=== PATIENT | male | born 1970 | race Caucasian/White ===

== ENCOUNTER 2017-10-26 16:12 | Emergency (ER) | payer SELFPAY ==
[~2017-10-26] VITALS: Ht 175.3 cm; Wt 80.0 kg
[2017-10-26 16:27] VITALS: BP 133/74; PULSE 89; RESP 16; TEMP 99.2; O2SAT 97
--- NOTE | 2017-10-26 16:51 | PD ---
HPI Chief Complaint: Skin Problem Time Seen by Provider: 16:35 Travel History International Travel<30 days: No Contact w/Intl Traveler<30days: No Traveled to known affect area: No History of Present Illness HPI Patient is a 47-year-old male who presents the emergency room with complaints of right ankle pain and swelling. Patient reports that 2 days ago, he twisted his right ankle twice, reports that he was seen at an outside emergency room and had an x-ray as well as a CT of his ankle performed which showed no obvious fractures. Patient reports that he has increased pain and swelling to his right ankle, he went to a furniture store today and was advised by the associate working to go to the ER to be re-seen. Patient denies any recent fall , reports that he has been wearing a brace on his right ankle, reports that he wanted a second opinion. Patient with no fever or chills, no other complaints at this time. PFSH Past Medical History Anxiety: Yes Depression: Yes Diminished Hearing: No Genitourinary: Yes (HX BRUSSED KIDNEY FROM FALL) Musculoskeletal: Yes (HX FX VERTIBRY, HX FX RIB) Immunizations Current: Yes Influenza Vaccination: No Past Surgical History Surgical History: No Previous Surgery Social History Alcohol Use: No (HX OF) Tobacco Use: Yes (1 PPD) Substance Use: No Allergies-Medications (Allergen,Severity, Reaction): Coded Allergies: acetaminophen (Unverified Allergy, Severe, Hives, 10/26/17) oxycodone (Unverified Allergy, Severe, Hives, 10/26/17) amoxicillin (Verified Allergy, Unknown, 10/26/17) clavulanic acid (Verified Allergy, Unknown, 10/26/17) Reported Meds & Prescriptions Reported Meds & Active Scripts Active Active Prescriptions or Reported Medications Unobtainable Review of Systems General / Constitutional: No: Fever, Chills Eyes: No: Visual changes HENT: No: Headaches Cardiovascular: No: Chest Pain or Discomfort Respiratory: No: Shortness of Breath Gastrointestinal: No: Abdominal Pain Genitourinary: No: Dysuria Musculoskeletal: No: Pain Skin: Positive Other (Right ankle swelling), No Rash Neurologic: No: Weakness Psychiatric: No: Depression Endocrine: No: Polydipsia Hematologic/Lymphatic: No: Easy Bruising Physical Exam Narrative GENERAL: Well-nourished, well-developed patient. SKIN: Focused skin assessment warm/dry. HEAD: Normocephalic. EYES: No scleral icterus. No injection or drainage. NECK: Supple, trachea midline. No JVD or lymphadenopathy. CARDIOVASCULAR: Regular rate and rhythm without murmurs, gallops, or rubs. RESPIRATORY: Breath sounds equal bilaterally. No accessory muscle use. GASTROINTESTINAL: Abdomen soft, non-tender, nondistended. MUSCULOSKELETAL: No cyanosis, or edema to left lower extremity. Right lower extremity: Patient with swelling to right ankle with bruising to right foot, no open fractures, there are no signs of infection, no erythema or warmth, pulses intact, neurovascularly intact. BACK: Nontender without obvious deformity. No CVA tenderness. Data Data Last Documented VS Vital Signs Date Time Temp Pulse Resp B/P (MAP) Pulse Ox O2 Delivery O2 Flow Rate FiO2 10/26/17 16:27 99.2 89 16 133/74 (93) 97 Orders Orders Ibuprofen (Motrin) (10/26/17 17:00) MDM Medical Decision Making Medical Screen Exam Complete: Yes Emergency Medical Condition: Yes Medical Record Reviewed: Yes Interpretation(s) Vital Signs Date Time Temp Pulse Resp B/P (MAP) Pulse Ox O2 Delivery O2 Flow Rate FiO2 10/26/17 16:27 99.2 89 16 133/74 (93) 97 Differential Diagnosis ankle sprain Narrative Course 47-year-old male who presents the emergency room with complaints of right-sided ankle sprain which occurred after a fall 2 days ago. Patient had an x-ray as well as a CAT scan of his right ankle which was negative for fracture at an outside hospital. Patient reports that his ankle is still swollen, patient is here for second opinion. Patient does have obvious swelling to his right ankle and right foot with bruising to his right foot, there are no obvious open fractures. Patient has bounding pulses to bilateral feet, he has had previous x-rays as well as CT scan of his ankle with no signs of fracture, patient with most likely ankle sprain. Patient follow-up with orthopedic surgeon if symptoms do not improve, encouraged rest, ice and elevation of his right ankle. Signs and symptoms of when to return to the emergency room was reviewed with patient in detail. Diagnosis Primary Impression: Right ankle sprain Qualified Codes: S93.401A - Sprain of unspecified ligament of right ankle, initial encounter Patient Instructions: General Instructions Departure Forms: Tests/Procedures Additional Instructions: Please rest/ice and elevate your right ankle Please take ibuprofen for pain. Return to ER as needed Please follow-up with orthopedic surgeon if pain continues. Scripts Unable to Obtain Active Prescriptions or Reported Meds Disposition: 01 DISCHARGE HOME Condition: Stable Martina Rivera DO Oct 26, 2017 16:51
[2017-10-26] MEDS ORDERED: IBUPROFEN 600 MG TAB PO ONE (17:00)
== END 2017-10-26 17:08 | disposition home or self-care (01) ==
LOC: PHED 16:12
DX: S93.401A Sprain of unspecified ligament of right ankle, initial encounter (principal); W19.XXXA Unspecified fall, initial encounter; F41.9 Anxiety disorder, unspecified; F32.9 Major depressive disorder, single episode, unspecified; F17.200 Nicotine dependence, unspecified, uncomplicated
CPT/HCPCS: 99282